=== PATIENT | female | born 1970 | race Caucasian/White ===

== ENCOUNTER 2017-08-12 14:57 | Inpatient (IN) | payer BC ==
[2017-08-12 17:19] LABS: ADD MAN DIFF? NO
[2017-08-12 17:38] LABS: INR 0.94; PROTIME 12.7 Sec (11.9-14.9)
[2017-08-12 17:39] LABS: ABNORMAL IP MESSAGE 1; HEMATOCRIT 24.2 % (37.0-47.0); MEAN CORPUSCULAR HEMOGLOBIN 15.4 pg (29.0-33.0); MEAN CORPUSCULAR HGB CONC 26.4 g/dl (32.0-37.0); MEAN CORPUSCULAR VOLUME 58.2 fl (82.0-101.0); NUCLEATED RED BLOOD CELLS% 0.3 /100WBC (0.0-0.0); PARTIAL THROMBOPLASTIN TIME 27.2 Sec (25.0-35.0); PLATELET COUNT 274 10^3/UL (140-415); RED BLOOD COUNT 4.16 10^6/ul (4.20-5.40); RED CELL DISTRIBUTION WIDTH 22.6 % (11.5-14.5)
[2017-08-12 17:42] LABS: HEMOGLOBIN 6.4 g/dl (12.0-16.0)
[2017-08-12 17:43] LABS: POSITIVE DIFF @See below
[2017-08-12 17:49] LABS: ALANINE AMINOTRANSFERASE 28 IU/L (13-69); ALBUMIN 4.5 g/dl (3.3-4.9); ALBUMIN/GLOBULIN RATIO 1.25; ALKALINE PHOSPHATASE 87 IU/L (42-121); ANION GAP 17 (8-16); ASPARTATE AMINO TRANSFERASE 17 IU/L (15-46); BILIRUBIN,INDIRECT 0.1 mg/dl (0-1.1); BILIRUBIN,TOTAL 0.1 mg/dl (0.2-1.3); BLOOD UREA NITROGEN 13 mg/dl (7-20); CALCIUM 8.9 mg/dl (8.4-10.2); CARBON DIOXIDE 21 mmol/L (21-31); CHLORIDE 107 mmol/L (97-110); CREATININE 0.47 mg/dl (0.44-1.00); GLUCOSE 99 mg/dl (70-220); LIPASE 48 U/L (23-300); SODIUM 141 mmol/L (135-144); TOTAL PROTEIN 8.1 g/dl (6.1-8.1)
[2017-08-12 17:50] LABS: ADD UMIC YES; UR ASCORBIC ACID NEGATIVE (NEGATIVE); UR BILIRUBIN (Dip) NEGATIVE (NEGATIVE); UR BLOOD (Dip) NEGATIVE (NEGATIVE); UR CLARITY CLEAR (CLEAR); UR COLOR STRAW (YELLOW); UR GLUCOSE (Dip) NEGATIVE (NEGATIVE); UR KETONES (Dip) NEGATIVE (NEGATIVE); UR LEUKOCYTE ESTERASE (Dip) 2+ Leu/ul (NEGATIVE); UR NITRITE (Dip) NEGATIVE (NEGATIVE); UR RBC 1 /HPF (0-5); UR SQUAMOUS EPITHELIAL CELL FEW /HPF (FEW); UR TOTAL PROTEIN (Dip) NEGATIVE (NEGATIVE); UR UROBILINOGEN (Dip) NEGATIVE (NEGATIVE); UR WBC 2 /HPF (0-5)
[2017-08-12 17:59] LABS: ANISOCYTOSIS 1+ (0-0); BAND NEUTROPHILS % (M) 1 % (0-4); EOSINOPHILS % (M) 1 % (0-7); GIANT THROMBO% (M) 2 % (0-0); HYPOCHROMASIA 3+ (0-0); LYMPHOCYTES #M 3.1 10^3/ul (0.8-2.9); LYMPHOCYTES % (M) 45 % (15-51); MICROCYTOSIS 1+ (0-0); MONOCYTES % (M) 1 % (0-11); PLATELET ESTIMATE NORMAL; POIKILOCYTOSIS 1+ (0-0); POLYCHROMASIA 1+ (0-0); SEG NEUT #M 3.6 10^3/ul (1.7-7.5); SEGMENTED NEUTROPHILS (M) % 52 % (39-77); SMUDGE%M 9 % (0-0)
[2017-08-12 18:03] LABS: OCCULT BLOOD STOOL POSITIVE (NEGATIVE)
[2017-08-12 19:03] LABS: IMMEDIATE SPIN CROSSMATCH 1 2
[2017-08-12] MEDS: IOHEXOL 300MG/ML 150 ML BTL (19:18)
[2017-08-12] MEDS: SOD CHLORIDE 0.9% 100 ML (19:18)
[2017-08-12] MEDS: ACETAMINOPHEN 500 MG TAB PO (19:41)
[2017-08-12] MEDS ORDERED: ACETAMINOPHEN 325 MG TAB PO (21:30)
[2017-08-12] MEDS ORDERED: LORAZEPAM 2 MG INJ IV (22:00)
[2017-08-12] MEDS ORDERED: NACL 0.9% 3 ML SYG IV (22:00)
[2017-08-12] MEDS ORDERED: NITROGLYCERIN (SL) 0.4 MG TAB SL (22:00)
[2017-08-12] MEDS ORDERED: NA PHOSPHATE/BIPHOS 133 ML ENEMA PR (22:00)
[2017-08-12] MEDS ORDERED: HYDROCODONE/APAP (5/325) TAB PO (22:00)
[2017-08-12] MEDS ORDERED: ONDANSETRON 4 MG INJ IV (22:00)
[2017-08-12] MEDS ORDERED: ALBUTEROL/IPRATROPIUM (NEB) 3 ML AMP HHN (22:00)
[2017-08-12] MEDS ORDERED: hydrALAzine 20 MG INJ IV (22:00)
[2017-08-12] MEDS: SOD CHLORIDE 0.9% 1,000 ML IV (23:24)
[2017-08-12 23:26] LABS: PROTIME 13.3 Sec (11.9-14.9)
[2017-08-12 23:27] LABS: PARTIAL THROMBOPLASTIN TIME 27.8 Sec (25.0-35.0)
[2017-08-12 23:47] LABS: FREE T4 (FREE THYROXINE) 0.97 ng/dl (0.64-1.79)
[2017-08-13] MEDS: SOD CHLORIDE 0.9% 1,000 ML IV ×3 (01:54→17:46)
[2017-08-13] MEDS: morphine 2 MG INJ IV (02:53)
[2017-08-13] MEDS: ONDANSETRON 4 MG INJ IV (02:53)
[2017-08-13] MEDS: ACETAMINOPHEN 325 MG TAB PO (05:11)
[2017-08-13] MEDS: PANTOPRAZOLE 40 MG INJ IV (05:12)
[2017-08-13] MEDS: CEFTRIAXONE 1 GM/50 ML (PMX) 50 ML IVPB (06:57)
[2017-08-13 07:21] LABS: ADD MAN DIFF? NO
[2017-08-13 07:25] LABS: ABNORMAL IP MESSAGE 1; BASOPHILS % 0.8 % (0.0-2.0); EOSINOPHILS # 0.1 10^3/ul (0.0-0.5); EOSINOPHILS % 1.6 % (0.0-7.0); HEMATOCRIT 28.4 % (37.0-47.0); LYMPHOCYTES % 40.5 % (15.0-51.0); MEAN CORPUSCULAR HGB CONC 28.2 g/dl (32.0-37.0); MEAN CORPUSCULAR VOLUME 63.8 fl (82.0-101.0); MONOCYTE # 0.4 10^3/ul (0.3-0.9); MONOCYTES % 8.4 % (0.0-11.0); NEUTROPHIL # 2.4 10^3/ul (1.6-7.5); NEUTROPHILS % 48.5 % (39.0-77.0); NUCLEATED RED BLOOD CELLS% 0.4 /100WBC (0.0-0.0); PLATELET COUNT 197 10^3/UL (140-415); RED BLOOD COUNT 4.45 10^6/ul (4.20-5.40); RED CELL DISTRIBUTION WIDTH 28.1 % (11.5-14.5)
[2017-08-13 07:25] LABS: WHITE BLOOD COUNT 4.9 10^3/ul (4.8-10.8)
[2017-08-13 07:46] LABS: ANION GAP 15 (8-16); BLOOD UREA NITROGEN 9 mg/dl (7-20); CALCIUM 8.8 mg/dl (8.4-10.2); CARBON DIOXIDE 22 mmol/L (21-31); CHLORIDE 107 mmol/L (97-110); CREATININE 0.46 mg/dl (0.44-1.00); GLUCOSE 103 mg/dl (70-220); MAGNESIUM 1.8 mg/dl (1.7-2.5); PHOSPHORUS 4.1 mg/dl (2.5-4.9); POTASSIUM 3.6 mmol/L (3.5-5.1); SODIUM 140 mmol/L (135-144)
[2017-08-13 07:49] LABS: CHOL/HDL RATIO 3.5 RATIO; HDL CHOLESTEROL 30 mg/dl (34-88); LDL CHOLESTEROL,CALCULATED 61 mg/dl; TRIGLYCERIDES 78 mg/dl (0-149)
[2017-08-13 07:49] LABS: CHOLESTEROL 107 mg/dl (100-200)
[2017-08-13 07:51] LABS: IRON 41 ug/dl (35-150)
[2017-08-13 08:00] LABS: % IRON SATURATION 8 % SAT (22-52); TOTAL IRON BINDING CAPACITY 493 ug/dl (241-421)
[2017-08-13 08:02] LABS: HEMOGLOBIN A1C 5.5 % (0-5.9)
[2017-08-13 13:32] LABS: ADD UMIC YES; UR ASCORBIC ACID NEGATIVE (NEGATIVE); UR BACTERIA FEW /HPF (NONE SEEN); UR BILIRUBIN (Dip) NEGATIVE (NEGATIVE); UR BLOOD (Dip) NEGATIVE (NEGATIVE); UR CLARITY CLEAR (CLEAR); UR COLOR STRAW (YELLOW); UR GLUCOSE (Dip) NEGATIVE (NEGATIVE); UR KETONES (Dip) NEGATIVE (NEGATIVE); UR LEUKOCYTE ESTERASE (Dip) TRACE Leu/ul (NEGATIVE); UR NITRITE (Dip) NEGATIVE (NEGATIVE); UR RBC 2 /HPF (0-5); UR SQUAMOUS EPITHELIAL CELL FEW /HPF (FEW); UR TOTAL PROTEIN (Dip) NEGATIVE (NEGATIVE); UR UROBILINOGEN (Dip) NEGATIVE (NEGATIVE); UR WBC 0 /HPF (0-5)
[2017-08-13] MEDS: BISACODYL (EC) 5 MG TAB PO (14:54)
[2017-08-13 15:17] LABS: PATH REVIEW CH
[2017-08-13] MEDS: MAGNESIUM CITRATE 300 ML BTL PO (18:16)
[2017-08-13] MEDS: POLYETHYLENE GLYCOL 3350 119 GM POWDER PO (18:21)
[2017-08-14] MEDS: SOD CHLORIDE 0.9% 1,000 ML IV ×3 (02:27→23:46)
[2017-08-14] MEDS: CEFTRIAXONE 1 GM/50 ML (PMX) 50 ML IVPB (04:40)
[2017-08-14] MEDS: PANTOPRAZOLE 40 MG INJ IV (06:24)
[2017-08-14] MEDS: POLYETHYLENE GLYCOL 3350 119 GM POWDER PO (06:29)
[2017-08-14 08:46] LABS: ADD MAN DIFF? NO
[2017-08-14 08:52] LABS: ABNORMAL IP MESSAGE 1; BASOPHILS % 0.6 % (0.0-2.0); EOSINOPHILS # 0.1 10^3/ul (0.0-0.5); EOSINOPHILS % 1.4 % (0.0-7.0); HEMATOCRIT 30.5 % (37.0-47.0); HEMOGLOBIN 8.5 g/dl (12.0-16.0); LYMPHOCYTES # 1.8 10^3/ul (0.8-2.9); LYMPHOCYTES % 34.4 % (15.0-51.0); MEAN CORPUSCULAR HGB CONC 27.9 g/dl (32.0-37.0); MEAN CORPUSCULAR VOLUME 64.8 fl (82.0-101.0); MONOCYTE # 0.4 10^3/ul (0.3-0.9); MONOCYTES % 7.1 % (0.0-11.0); NEUTROPHIL # 2.9 10^3/ul (1.6-7.5); NEUTROPHILS % 56.3 % (39.0-77.0); PLATELET COUNT 214 10^3/UL (140-415); RED BLOOD COUNT 4.71 10^6/ul (4.20-5.40)
[2017-08-14 08:52] LABS: WHITE BLOOD COUNT 5.1 10^3/ul (4.8-10.8)
[2017-08-14 09:00] LABS: POSITIVE DIFF @See below
[2017-08-14] MEDS: BISACODYL (EC) 5 MG TAB PO (09:06)
[2017-08-14] MEDS: MAGNESIUM HYDROXIDE 30ML CUP PO (09:06)
[2017-08-14 09:16] LABS: ALANINE AMINOTRANSFERASE 22 IU/L (13-69); ALBUMIN 4.2 g/dl (3.3-4.9); ALBUMIN/GLOBULIN RATIO 1.07; ALKALINE PHOSPHATASE 86 IU/L (42-121); ANION GAP 16 (8-16); ASPARTATE AMINO TRANSFERASE 24 IU/L (15-46); BILIRUBIN,INDIRECT 0.4 mg/dl (0-1.1); BILIRUBIN,TOTAL 0.4 mg/dl (0.2-1.3); BLOOD UREA NITROGEN 8 mg/dl (7-20); CALCIUM 9.2 mg/dl (8.4-10.2); CARBON DIOXIDE 19 mmol/L (21-31); CHLORIDE 109 mmol/L (97-110); CREATININE 0.48 mg/dl (0.44-1.00); GLUCOSE 88 mg/dl (70-220); POTASSIUM 3.8 mmol/L (3.5-5.1); SODIUM 140 mmol/L (135-144); TOTAL PROTEIN 8.1 g/dl (6.1-8.1)
[2017-08-14 09:18] LABS: INR 1.08; PARTIAL THROMBOPLASTIN TIME 26.6 Sec (25.0-35.0); PROTIME 14.1 Sec (11.9-14.9); PT RATIO 1.1
[2017-08-14] MEDS: LIDOCAINE 2% (SDV) 5 ML INJ (15:24)
[2017-08-14] MEDS: MIDAZOLAM 1 MG/ML 2 ML INJ (15:24)
[2017-08-14] MEDS: PROPOFOL 40 ML (15:24)
[2017-08-14] MEDS ORDERED: ONDANSETRON 4 MG INJ IV (15:30)
[2017-08-14] MEDS ORDERED: MEPERIDINE 25 MG INJ IV (15:30)
[2017-08-14] MEDS ORDERED: HYDROmorphONE (0.2 MG/ML) 10ML SYG IV (15:30)
[2017-08-14] MEDS ORDERED: DIPHENHYDRAMINE 50 MG INJ IV (15:30)
[2017-08-14] MEDS: DOCUSATE SODIUM 100 MG CAP PO (22:23)
[2017-08-15] MEDS: CEFTRIAXONE 1 GM/50 ML (PMX) 50 ML IVPB (05:47)
[2017-08-15] MEDS: PANTOPRAZOLE 40 MG INJ IV (05:47)
[2017-08-15] MEDS: SOD CHLORIDE 0.9% 1,000 ML IV (05:51)
[2017-08-15 06:22] LABS: ADD MAN DIFF? NO
[2017-08-15 06:35] LABS: ABNORMAL IP MESSAGE 1; BASOPHILS % 0.7 % (0.0-2.0); EOSINOPHILS # 0.1 10^3/ul (0.0-0.5); EOSINOPHILS % 1.9 % (0.0-7.0); HEMATOCRIT 29.9 % (37.0-47.0); HEMOGLOBIN 8.4 g/dl (12.0-16.0); LYMPHOCYTES # 2.2 10^3/ul (0.8-2.9); LYMPHOCYTES % 38.6 % (15.0-51.0); MEAN CORPUSCULAR HEMOGLOBIN 17.9 pg (29.0-33.0); MEAN CORPUSCULAR HGB CONC 28.1 g/dl (32.0-37.0); MEAN CORPUSCULAR VOLUME 63.8 fl (82.0-101.0); MONOCYTE # 0.4 10^3/ul (0.3-0.9); MONOCYTES % 7.2 % (0.0-11.0); NEUTROPHIL # 2.9 10^3/ul (1.6-7.5); NEUTROPHILS % 51.4 % (39.0-77.0); PLATELET COUNT 256 10^3/UL (140-415); RED BLOOD COUNT 4.69 10^6/ul (4.20-5.40); RED CELL DISTRIBUTION WIDTH 29.2 % (11.5-14.5)
[2017-08-15 06:35] LABS: WHITE BLOOD COUNT 5.7 10^3/ul (4.8-10.8)
[2017-08-15 06:55] LABS: POSITIVE DIFF @See below
[2017-08-15 07:13] LABS: ANION GAP 15 (8-16); BLOOD UREA NITROGEN 7 mg/dl (7-20); CALCIUM 8.6 mg/dl (8.4-10.2); CARBON DIOXIDE 22 mmol/L (21-31); CHLORIDE 108 mmol/L (97-110); CREATININE 0.46 mg/dl (0.44-1.00); GLUCOSE 104 mg/dl (70-220); POTASSIUM 3.9 mmol/L (3.5-5.1); SODIUM 141 mmol/L (135-144)
== END 2017-08-15 11:33 | disposition home or self-care (01) | DRG 378 ==
LOC: TEL 21:12 → FTE 14:57
PROC: 0DB68ZX Excision of Stomach, Via Natural or Artificial Opening Endoscopic, Diagnostic (ICD-10-PCS; principal; 2017-08-14 14:00)
PROC: 0DJD8ZZ Inspection of Lower Intestinal Tract, Via Natural or Artificial Opening Endoscopic (ICD-10-PCS; 2017-08-14 14:00)
PROC: 30233N1 Transfusion of Nonautologous Red Blood Cells into Peripheral Vein, Percutaneous Approach (ICD-10-PCS; 2017-08-14 14:00)
DX: K92.2 Gastrointestinal hemorrhage, unspecified (principal); D62 Acute posthemorrhagic anemia; Z68.41 Body mass index [BMI] 40.0-44.9, adult; N39.0 Urinary tract infection, site not specified; E66.9 Obesity, unspecified; D64.9 Anemia, unspecified; K64.8 Other hemorrhoids; K29.70 Gastritis, unspecified, without bleeding
CPT/HCPCS: 36415; 36430; 74177; 80048; 80053; 80061; 81001; 82270; 82962; 83036; 83540; 83690; 83735; 84100; 84439; 84443; 85025; 85610; 85730; 86850; 86900; 86901; 86920; 87040; 87086; 88305; 88312; 96374; 96375; 99285-25

== ENCOUNTER 2017-09-30 18:49 | Emergency (ER) | payer SELFPAY, BC | END 2017-09-30 22:38 | disposition left against medical advice (07) | LOC: FTE 18:49 | DX: Z53.21 Procedure and treatment not carried out due to patient leaving prior to being seen by health care provider (principal) ==

== ENCOUNTER 2019-01-08 06:22 | Emergency (ER) | payer BC ==
[2019-01-08] MEDS: DIPHENHYDRAMINE 50 MG INJ IV ×2 (07:11→08:58)
[2019-01-08] MEDS: FAMOTIDINE 20 MG INJ IV (07:11)
[2019-01-08] MEDS: METHYLPREDNISOLONE 125 MG INJ IV (07:11)
[2019-01-08] MEDS: EPINEPHrine 1 MG INJ IM ×2 (08:31→09:23)
[2019-01-08] MEDS: ALBUTEROL 0.5% (NEB) 2.5 MG/0.5 ML AMP INH (08:49)
== END 2019-01-08 10:20 | disposition home or self-care (01) ==
LOC: FTE 06:22 → E/R 10:20
DX: T78.3XXA Angioneurotic edema, initial encounter (principal)
CPT/HCPCS: 94644; 96372; 96374; 96375; 96376; 99284-25

== ENCOUNTER 2019-01-21 13:02 | Emergency (ER) | payer BC ==
[2019-01-21 14:34] LABS: ADD MAN DIFF? NO
[2019-01-21 14:37] LABS: ABNORMAL IP MESSAGE 1; BASOPHIL # 0.1 10^3/ul (0.0-0.1); BASOPHILS % 0.7 % (0.0-2.0); EOSINOPHILS # 0.1 10^3/ul (0.0-0.5); EOSINOPHILS % 1.3 % (0.0-7.0); HEMATOCRIT 28.6 % (37.0-47.0); HEMOGLOBIN 7.8 g/dl (12.0-16.0); LYMPHOCYTES # 2.6 10^3/ul (0.8-2.9); LYMPHOCYTES % 31.2 % (15.0-51.0); MEAN CORPUSCULAR HGB CONC 27.3 g/dl (32.0-37.0); MEAN CORPUSCULAR VOLUME 62.3 fl (82.0-101.0); MEAN PLATELET VOLUME 10.3 fl (7.4-10.4); MONOCYTE # 0.6 10^3/ul (0.3-0.9); MONOCYTES % 6.6 % (0.0-11.0); NEUTROPHILS % 59.5 % (39.0-77.0); NUCLEATED RED BLOOD CELLS% 0.2 /100WBC (0.0-0.0); PLATELET COUNT 348 10^3/UL (140-415); RED BLOOD COUNT 4.59 10^6/ul (4.20-5.40); RED CELL DISTRIBUTION WIDTH 24.2 % (11.5-14.5)
[2019-01-21 14:37] LABS: WHITE BLOOD COUNT 8.4 10^3/ul (4.8-10.8)
[2019-01-21 14:44] LABS: POSITIVE DIFF @See below
[2019-01-21] MEDS: SOD CHLORIDE 0.9% 1,000 ML IV (14:46)
[2019-01-21 14:47] LABS: ADD UMIC NO; UR ASCORBIC ACID 40 mg/dL (NEGATIVE); UR BILIRUBIN (Dip) NEGATIVE (NEGATIVE); UR BLOOD (Dip) NEGATIVE (NEGATIVE); UR CLARITY CLEAR (CLEAR); UR COLOR YELLOW (YELLOW); UR GLUCOSE (Dip) NEGATIVE (NEGATIVE); UR KETONES (Dip) NEGATIVE (NEGATIVE); UR LEUKOCYTE ESTERASE (Dip) NEGATIVE Leu/ul (NEGATIVE); UR NITRITE (Dip) NEGATIVE (NEGATIVE); UR SPECIFIC GRAVITY (Dip) 1.016 (1.003-1.030); UR TOTAL PROTEIN (Dip) NEGATIVE (NEGATIVE); UR UROBILINOGEN (Dip) NEGATIVE (NEGATIVE)
[2019-01-21 15:09] LABS: ALANINE AMINOTRANSFERASE 68 IU/L (13-69); ALBUMIN 4.3 g/dl (3.3-4.9); ALBUMIN/GLOBULIN RATIO 1.16; ALKALINE PHOSPHATASE 113 IU/L (42-121); ANION GAP 10 (5-13); ASPARTATE AMINO TRANSFERASE 81 IU/L (15-46); BILIRUBIN,INDIRECT 0.3 mg/dl (0-1.1); BILIRUBIN,TOTAL 0.3 mg/dl (0.2-1.3); BLOOD UREA NITROGEN 9 mg/dl (7-20); CALCIUM 9.5 mg/dl (8.4-10.2); CARBON DIOXIDE 28 mmol/L (21-31); CHLORIDE 100 mmol/L (97-110); CREATININE 0.37 mg/dl (0.44-1.00); Estimated GFR > 60 mL/min (>60); GLUCOSE 187 mg/dl (70-220); IRON 25 ug/dl (35-150); LACTATE DEHYDROGENASE 591 IU/L (313-618); SODIUM 138 mmol/L (135-144)
[2019-01-21 15:18] LABS: % IRON SATURATION 5 % SAT (22-52); TOTAL IRON BINDING CAPACITY 521 ug/dl (241-421)
[2019-01-21 16:00] LABS: IMMEDIATE SPIN CROSSMATCH 1 1
[2019-01-21 22:56] LABS: FERRITIN 10.5 ng/ml (6.2-137.0)
[2019-01-22 11:11] LABS: TRANSFERRIN 423 mg/dL (188-341)
== END 2019-01-21 19:37 | disposition home or self-care (01) ==
LOC: E/R 13:02
PROVIDERS: Pediatrics Pediatric Cardiology
DX: D59.1 Other autoimmune hemolytic anemias (principal)
CPT/HCPCS: 36430; 80053; 81003; 81025; 82728; 83540; 83615; 84466; 85025; 86850; 86900; 86901; 86920; 99285-25